=== PATIENT | male | born 1965 | race Caucasian/White ===

== ENCOUNTER 2021-12-17 15:43 | Emergency (ER) | payer MEDICARE, MEDICAID ==
[~2021-12-17] VITALS: Ht 190.5 cm; Wt 95.5 kg
[~2021-12-17 15:43] MED LIST: ASPI-611 PO; CHOL500050 PO; DEC1T PO
[2021-12-17 16:18] VITALS: BP 143/87
[2021-12-17] MEDS ORDERED: bacitracin 15gm ointment TP ONE (16:40)
== END 2021-12-17 17:38 | disposition home or self-care (01) ==
LOC: ER 15:43
DX: Z48.00 Encounter for change or removal of nonsurgical wound dressing (principal)
CPT/HCPCS: 99283

== ENCOUNTER 2022-03-16 14:08 | Inpatient (IN) | payer MEDICARE, MEDICAID ==
[~2022-03-16] VITALS: Ht 180.3 cm; Wt 98.0 kg
[~2022-03-16 14:08] MED LIST changes: -ASPI-611 PO; -DEC1T PO; +OMEG10006 PO; +etomidate 2mg/ml inj. ONE; +rocuronium 10mg/ml inj IV ONE; +sod chloride 0.9% 10ml flush syringe IV ONE
[2022-03-16] MEDS ORDERED: albuterol 2.5 MG/3 ML nebule CONTNEB PRN (14:15)
[2022-03-16] MEDS ORDERED: methylPREDNISolone sod succ 125mg/2ml vial IV ONE (14:15)
[2022-03-16] MEDS ORDERED: albuterol 2.5 MG/3 ML nebule ONE (14:16)
[2022-03-16 14:29] LABS: ABG BASE EXCESS -1.5 mmol/L (-2.0-2.0); ABG HCO3 26.9 mmol/L (22.0-26.0); ABG OXYGEN SATURATION 88.8 % (94-97); ABG PCO2 (T) 63.4 mmHg (35.0-48.0); ABG PO2 (T) 64.3 mmHg (75.0-100.0); FCOHb 1.1 % (0.0-3.9); FLOW 15 L/min; FMetHb 0.1 % (0.0-1.5); FO2Hb 87.7 % (94-97); PATIENT TEMPERATURE 37.1
[2022-03-16 14:38] LABS: BASOPHILS % (AUTO) 0.2 % (0-1); EOSINOPHILS % (AUTO) 0.1 % (0-6); HEMATOCRIT 37.3 % (42.0-52.0); HEMOGLOBIN 11.7 g/dl (14.0-17.9); MEAN CORPUSCULAR HEMOGLOBIN 26.1 PG (27.0-31.0); MEAN CORPUSCULAR HGB CONC 31.3 g/dL (33.0-36.5); MEAN CORPUSCULAR VOLUME 83.4 FL (78-98); MEAN PLATELET VOLUME 7.5 FL (7.4-10.4); MONOCYTES % (AUTO) 7.4 % (2-12); NEUTROPHILS % (AUTO) 85.3 % (42-75); PLATELET COUNT 552 X10'3 (140-440); RED BLOOD COUNT 4.47 X10'6 (4.70-6.10); RED CELL DISTRIBUTION WIDTH 15.1 % (11.5-14.5)
[2022-03-16 15:03] LABS: ALANINE AMINOTRANSFERASE 18 U/L (12-78); ALBUMIN 2.8 G/DL (3.4-5.0); ALBUMIN/GLOBULIN RATIO 0.4 (1.1-1.5); ALKALINE PHOSPHATASE 69 IU/L (46-116); ANION GAP 11 (8-16); ASPARTATE AMINO TRANSFERASE 27 U/L (10-37); BILIRUBIN,TOTAL 0.3 MG/DL (0.1-1.0); BLOOD UREA NITROGEN 29 MG/DL (7-18); BUN/CREATININE RATIO 19.6 (5.4-32.0); CALCIUM 9.9 MG/DL (8.5-10.1); CHLORIDE 96 MMOL/L (99-107); CREATININE 1.48 MG/DL (0.60-1.10); GLUCOSE 132 MG/DL (70-104); MAGNESIUM 2.1 MG/DL (1.5-2.4); SODIUM 134 MMOL/L (135-145); TOTAL CARBON DIOXIDE 27.3 MMOL/L (24-32); TOTAL PROTEIN 9.6 G/DL (6.4-8.2); eGFR 49 ML/MIN
[2022-03-16 15:09] LABS: POTASSIUM 4.6 MMOL/L (3.5-5.1)
[2022-03-16] MEDS ORDERED: piperacillin/tazo 3.375gm/50ml 50 ML IV ONE (15:45)
[2022-03-16] MEDS ORDERED: normal saline 1000ML IV soln IV ONE (15:45)
[2022-03-16 15:48] LABS: CLARITY,URINE CLOUDY (Clear); COLOR,URINE YELLOW (Yellow); GLUCOSE, URINE NEGATIVE (Neg); KETONES,URINE TRACE mg/dl (Neg); LEUKOCYTE ESTERASE ,URINE MODERATE (Neg); NITRITES, URINE NEGATIVE (Neg); OCCULT BLOOD,URINE MODERATE (Neg); PROTEIN,URINE 100 mg/dl (Neg); UROBILINOGEN,URINE 0.2 E.U/dL (0.2-1.0)
[2022-03-16 15:52] LABS: UA COLLECTION TYPE FOLEY CATH
[2022-03-16 15:56] LABS: WBC,URINE TNTC /HPF (0-4)
[2022-03-16 16:14] LABS: SQUAMOUS EPITHELIAL CELL,UR FEW /LPF (FEW)
[2022-03-16 16:15] LABS: BACTERIA,URINE 4+ /HPF (Neg)
[2022-03-16] MEDS ORDERED: ondansetron/PF 4mg/2ml inj IV PRN (16:15)
[2022-03-16] MEDS ORDERED: morphine 2 MG/ML inj. syringe IV PRN (16:15)
[2022-03-16] MEDS ORDERED: HYDROcodone/acetaminophen 5mg/325mg tablet PO PRN (16:15)
[2022-03-16] MEDS ORDERED: mag hydrox/Alum hydrox/simeth 30ml oral suspension PO PRN (16:15)
[2022-03-16] MEDS ORDERED: magnesium hydroxide 30ml (MOM) UD suspension PO PRN (16:15)
[2022-03-16] MEDS ORDERED: acetaminophen 325mg tablet PO PRN (16:15)
[2022-03-16] MEDS ORDERED: HYDROcodone/acetaminophen 10/325mg tab PO PRN (16:15)
[2022-03-16 16:35] LABS: ABG BASE EXCESS -2.4 mmol/L (-2.0-2.0); ABG HCO3 25.5 mmol/L (22.0-26.0); ABG OXYGEN SATURATION 97.8 % (94-97); ABG PCO2 (T) 58.2 mmHg (35.0-48.0); ABG PO2 (T) 112.7 mmHg (75.0-100.0); ALLEN'S TEST POSITIVE; FCOHb 0.5 % (0.0-3.9); FMetHb 0.2 % (0.0-1.5); FO2Hb 97.1 % (94-97); RESPIRATORY RATE 12 b/min; TIDAL VOLUME 459 mL
[2022-03-16 16:56] LABS: D-DIMER 6.48 MG/L FEU (0-0.50)
[2022-03-16] MEDS ORDERED: azithromycin/NS 500mg/250ml 250 ML IV ONE (17:20)
[2022-03-16] MEDS ORDERED: enoxaparin 80mg/0.8ml syringe SUBCUT ONE (17:30)
[2022-03-16] MEDS: docusate sod 100mg capsule PO SCH (19:58)
[2022-03-16 21:36] LABS: ABG BASE EXCESS -3.3 mmol/L (-2.0-2.0); ABG HCO3 23.5 mmol/L (22.0-26.0); ABG OXYGEN SATURATION 86.5 % (94-97); ABG PCO2 (T) 50.3 mmHg (35.0-48.0); ABG PO2 (T) 54.6 mmHg (75.0-100.0); FCOHb 0.6 % (0.0-3.9); PATIENT TEMPERATURE 37.3
[2022-03-16 22:03] VITALS: BP 91/61
[2022-03-17 02:00] VITALS: BP 108/70
[2022-03-17] MEDS: enoxaparin 40mg/0.4ml syringe SUBCUT SCH (07:46)
[2022-03-17] MEDS: CefTRIAXone/D5W-Rocephin 1gm 50 ML IV SCH (07:47)
[2022-03-17] MEDS: docusate sod 100mg capsule PO SCH ×2 (08:00→20:00)
[2022-03-17 08:31] LABS: BASOPHILS % (AUTO) 0.1 % (0-1); EOSINOPHILS % (AUTO) 0 % (0-6); HEMATOCRIT 33.2 % (42.0-52.0); HEMOGLOBIN 10.6 g/dl (14.0-17.9); MEAN CORPUSCULAR HEMOGLOBIN 26.5 PG (27.0-31.0); MEAN CORPUSCULAR HGB CONC 31.9 g/dL (33.0-36.5); MEAN CORPUSCULAR VOLUME 83.1 FL (78-98); MEAN PLATELET VOLUME 7.3 FL (7.4-10.4); MONOCYTES % (AUTO) 4.9 % (2-12); NEUTROPHILS # (AUTO) 12.8 X10'3 (1.8-7.7); PLATELET COUNT 462 X10'3 (140-440); WHITE BLOOD COUNT 14.6 X10'3 (4.5-11.0)
[2022-03-17 08:32] LABS: MONOCYTES # (AUTO) 0.7 X10'3 (0-0.9)
--- NOTE | 2022-03-17 08:32 | NUR ---
Dr. Suarez wanted the patient to have 80mg of lovenox this morning total. He gave me an order for 40 mg lovenox SQ once now.
[2022-03-17 08:37] VITALS: BP 113/70
[2022-03-17 08:52] LABS: ALANINE AMINOTRANSFERASE 13 U/L (12-78); ALBUMIN 2.3 G/DL (3.4-5.0); ALBUMIN/GLOBULIN RATIO 0.4 (1.1-1.5); ALKALINE PHOSPHATASE 57 IU/L (46-116); ANION GAP 7 (8-16); ASPARTATE AMINO TRANSFERASE 20 U/L (10-37); BILIRUBIN,TOTAL 0.2 MG/DL (0.1-1.0); BLOOD UREA NITROGEN 28 MG/DL (7-18); BUN/CREATININE RATIO 25.7 (5.4-32.0); CALCIUM 9.3 MG/DL (8.5-10.1); CHLORIDE 103 MMOL/L (99-107); CREATININE 1.09 MG/DL (0.60-1.10); GLUCOSE 159 MG/DL (70-104); POTASSIUM 4.4 MMOL/L (3.5-5.1); SODIUM 137 MMOL/L (135-145); TOTAL CARBON DIOXIDE 27.3 MMOL/L (24-32); TOTAL PROTEIN 8.3 G/DL (6.4-8.2); eGFR 70 ML/MIN
[2022-03-17] MEDS ORDERED: enoxaparin 40mg/0.4ml syringe SUBCUT ONE (09:25)
--- NOTE | 2022-03-17 09:28 | NUR ---
Malnutrition consult: Pt endorses a good appetite and denies any significant wt loss. It seemed a little difficult for pt to articulate his words, though he seemed to be saying that he has occasional difficulties w/ swallowing. Recommend BSS to determine swallow safety. No edema noted. No visible signs of muscle or fat wasting observed. Pt does not meet minimum criteria for malnutrition. Pt has wound to coccyx per RN skin assessment, WOC pending. Addendum: 03/17/22 at [address] Amended: Links added.
--- NOTE | 2022-03-17 10:22 | NUR ---
Physical assessment - patient appears to have layers of dried skin scales all over facial area, and caked in lemus. layers of caked scaly skin behind both ears. Nails dirty and long. General lack of hygiene care noted. Hygiene care provided. Pressure sores to Left foot and bilateral buttocks noted - wound consult completed. Urine thick with green, yellow mucus. Ortiz care provided. social services specialist consult requested.
--- NOTE | 2022-03-17 10:46 | NUR ---
Page Sent promotional table spacer PAGER ID: [phone] MESSAGE: [id number] Maurizio Sanford. Blood culture positive @18.56 hours from the right arm drawn 03/16 from the aerobic bottle. Gram stain show gram positive cocci in clusters. Allyson @1545 (173 character message out of a maximum of 240)
[2022-03-17 11:00] VITALS: BP 124/88
[2022-03-17 15:00] VITALS: BP 128/87
[2022-03-17] MEDS ORDERED: ACET-812 PO (16:35)
[2022-03-17] MEDS ORDERED: BISA-155 PO (16:35)
[2022-03-17] MEDS ORDERED: GUAI-1078 PO (16:35)
[2022-03-17] MEDS ORDERED: OMEG1CAP61 PO (16:35)
[2022-03-17] MEDS ORDERED: IBUP-1984 PO (16:35)
[2022-03-17] MEDS ORDERED: CALC500T11 PO (16:35)
[2022-03-17] MEDS ORDERED: CHOL200012 PO (16:35)
--- NOTE | 2022-03-17 17:48 | NUR ---
orientee documentation: I have reviewed and agree with all interventions, assessments performed and documented by Irma THIBODEAUX . Orientee Medication Administration: For this medication-pass time frame, all medication were reviewed, dispensed, administered and documented per hospital policy by Irma HTIBODEAUX .
[2022-03-17 18:00] VITALS: BP 96/51
--- NOTE | 2022-03-17 18:05 | NUR ---
Problems reprioritized. Patient report given, questions answered & plan of care reviewed with Rik HARDING. Patient resting in bed in n acute distress.
[2022-03-18 02:00] VITALS: BP 85/48
--- NOTE | 2022-03-18 06:50 | NUR ---
Patient in room PCU 3013B. I have received report from Rik HARDING and had the opportunity to ask questions and assume patient care. Pt is laying high fowlers in bed. Pt on 6L NC. No s/s of distress, or c/o pain at this time. BLL, call light within reach, frequently used items inreach, frequent rounding, instant powder supervisor socks on. Will continue to monitor.
[2022-03-18 07:02] LABS: BASOPHILS % (AUTO) 0.1 % (0-1); EOSINOPHILS % (AUTO) 0.2 % (0-6); HEMATOCRIT 29.9 % (42.0-52.0); HEMOGLOBIN 9.4 g/dl (14.0-17.9); LYMPHOCYTES # (AUTO) 1.4 X10'3 (1.1-4.8); LYMPHOCYTES % (AUTO) 11.2 % (21-51); MEAN CORPUSCULAR HEMOGLOBIN 26.1 PG (27.0-31.0); MEAN CORPUSCULAR HGB CONC 31.6 g/dL (33.0-36.5); MEAN CORPUSCULAR VOLUME 82.8 FL (78-98); MEAN PLATELET VOLUME 7.2 FL (7.4-10.4); MONOCYTES # (AUTO) 1.2 X10'3 (0-0.9); MONOCYTES % (AUTO) 9.2 % (2-12); NEUTROPHILS # (AUTO) 10.2 X10'3 (1.8-7.7); NEUTROPHILS % (AUTO) 79.3 % (42-75); PLATELET COUNT 430 X10'3 (140-440); RED BLOOD COUNT 3.61 X10'6 (4.70-6.10); RED CELL DISTRIBUTION WIDTH 14.7 % (11.5-14.5); WHITE BLOOD COUNT 12.9 X10'3 (4.5-11.0)
[2022-03-18] MEDS: docusate sod 100mg capsule PO SCH ×2 (09:00→19:43)
[2022-03-18] MEDS: CefTRIAXone/D5W-Rocephin 1gm 50 ML IV SCH (09:00)
[2022-03-18] MEDS: enoxaparin 40mg/0.4ml syringe SUBCUT SCH (09:01)
[2022-03-18 09:05] LABS: ALANINE AMINOTRANSFERASE 22 U/L (12-78); ALBUMIN 2.2 G/DL (3.4-5.0); ALBUMIN/GLOBULIN RATIO 0.4 (1.1-1.5); ALKALINE PHOSPHATASE 52 IU/L (46-116); ANION GAP 7 (8-16); ASPARTATE AMINO TRANSFERASE 28 U/L (10-37); BILIRUBIN,TOTAL 0.1 MG/DL (0.1-1.0); BLOOD UREA NITROGEN 31 MG/DL (7-18); BUN/CREATININE RATIO 30.4 (5.4-32.0); CALCIUM 9.5 MG/DL (8.5-10.1); CHLORIDE 104 MMOL/L (99-107); CREATININE 1.02 MG/DL (0.60-1.10); GLUCOSE 106 MG/DL (70-104); POTASSIUM 3.7 MMOL/L (3.5-5.1); SODIUM 141 MMOL/L (135-145); TOTAL CARBON DIOXIDE 29.7 MMOL/L (24-32); TOTAL PROTEIN 7.5 G/DL (6.4-8.2); eGFR 76 ML/MIN
[2022-03-18] MEDS ORDERED: vancomycin/NS 1 GM ADD-VANTAGE 250 ML IV SCH (10:05)
[2022-03-18] MEDS ORDERED: iohexol 350MG/ML 100ml bottle IV ONE (11:34)
[2022-03-18 18:00] VITALS: BP 114/67
[2022-03-18] MEDS: docusate sodium 100mg/10ml UD cup PO SCH (19:55)
[2022-03-18 22:24] VITALS: BP 108/61
[2022-03-19 02:42] VITALS: BP 96/58
[2022-03-19 07:00] VITALS: BP 90/48
[2022-03-19 07:15] LABS: BASOPHILS % (AUTO) 0.1 % (0-1); EOSINOPHILS % (AUTO) 0.2 % (0-6); HEMATOCRIT 30.6 % (42.0-52.0); HEMOGLOBIN 9.8 g/dl (14.0-17.9); LYMPHOCYTES # (AUTO) 1.8 X10'3 (1.1-4.8); LYMPHOCYTES % (AUTO) 10.4 % (21-51); MEAN CORPUSCULAR HEMOGLOBIN 26.5 PG (27.0-31.0); MEAN CORPUSCULAR HGB CONC 32.1 g/dL (33.0-36.5); MEAN CORPUSCULAR VOLUME 82.5 FL (78-98); MEAN PLATELET VOLUME 7.7 FL (7.4-10.4); MONOCYTES % (AUTO) 5.6 % (2-12); NEUTROPHILS # (AUTO) 14.7 X10'3 (1.8-7.7); NEUTROPHILS % (AUTO) 83.7 % (42-75); PLATELET COUNT 480 X10'3 (140-440); RED BLOOD COUNT 3.71 X10'6 (4.70-6.10); RED CELL DISTRIBUTION WIDTH 14.8 % (11.5-14.5); WHITE BLOOD COUNT 17.5 X10'3 (4.5-11.0)
[2022-03-19] MEDS: CefTRIAXone/D5W-Rocephin 1gm 50 ML IV SCH (07:31)
[2022-03-19] MEDS: enoxaparin 40mg/0.4ml syringe SUBCUT SCH (07:31)
[2022-03-19] MEDS: docusate sodium 100mg/10ml UD cup PO SCH ×2 (07:31→19:06)
[2022-03-19 07:38] LABS: ALANINE AMINOTRANSFERASE 25 U/L (12-78); ALBUMIN 1.9 G/DL (3.4-5.0); ALBUMIN/GLOBULIN RATIO 0.3 (1.1-1.5); ALKALINE PHOSPHATASE 57 IU/L (46-116); ANION GAP 6 (8-16); ASPARTATE AMINO TRANSFERASE 26 U/L (10-37); BILIRUBIN,TOTAL 0.2 MG/DL (0.1-1.0); BLOOD UREA NITROGEN 22 MG/DL (7-18); BUN/CREATININE RATIO 20.8 (5.4-32.0); CALCIUM 8.9 MG/DL (8.5-10.1); CHLORIDE 101 MMOL/L (99-107); CREATININE 1.06 MG/DL (0.60-1.10); GLUCOSE 111 MG/DL (70-104); POTASSIUM 3.7 MMOL/L (3.5-5.1); SODIUM 138 MMOL/L (135-145); TOTAL CARBON DIOXIDE 31.3 MMOL/L (24-32); TOTAL PROTEIN 7.4 G/DL (6.4-8.2); eGFR 73 ML/MIN
[2022-03-19 13:00] VITALS: BP 130/55
[2022-03-19 18:00] VITALS: BP 111/58
[2022-03-19] MEDS: morphine 2 MG/ML inj. syringe IV PRN (21:29)
[2022-03-19 23:34] VITALS: BP 103/64
[2022-03-20] VITALS (31 sets, daily range): BP systolic 91–148; BP diastolic 49–86
[2022-03-20] MEDS: morphine 2 MG/ML inj. syringe IV PRN ×2 (01:30→05:32)
[2022-03-20 06:38] LABS: ABG BASE EXCESS 4.7 mmol/L (-2.0-2.0); ABG HCO3 32.6 mmol/L (22.0-26.0); ABG OXYGEN SATURATION 87.7 % (94-97); ABG PCO2 (T) 65.3 mmHg (35.0-48.0); ABG PO2 (T) 52.6 mmHg (75.0-100.0); ALLEN'S TEST POSITIVE; FCOHb 0.1 % (0.0-3.9); FMetHb 0.2 % (0.0-1.5); FO2Hb 87.4 % (94-97); RESPIRATORY RATE 16 b/min; TIDAL VOLUME 549 mL; TOTAL HEMOGLOBIN 12.1 G/dl (14.0-17.9)
--- NOTE | 2022-03-20 06:47 | NUR ---
STAT CHEST XRAY POST-INTUBATION ROOM 3017Q PT NINA DESAI
--- NOTE | 2022-03-20 07:00 | NUR ---
RN called patient's sister (Gabriela Sanford) and notified that patient's respiratory status was worsening and MD Luther would like to intubate. The patient's sister agreed with this action and stated she was on her way to the hospital to see her brother.
--- NOTE | 2022-03-20 07:02 | NUR ---
0540 MD Luther was notified by telephone that patient had increased respirations in the 25-20 range and oxygen saturation at 84%. MD Luther ordered a stat chest x-ray. RN paged RT and RT assessed. 0550 MD Luther notified by telephone that patient had increased respirations in the 30-35 range. MD Luther ordered an ABG. RT was paged about ABG order. 0600 MD Luther was at bedside and ordered that patient be intubated and transferred to CICU. CICU specialist physician, two RT's, and ED MD intubated the patient at bedside. Patient was transferred to the CICU by RT and CICU specialist physician. Report called to CICU nurse that was going to get the patient.
[2022-03-20] MEDS: docusate sodium 100mg/10ml UD cup PO SCH ×2 (08:00→18:44)
[2022-03-20] MEDS: enoxaparin 40mg/0.4ml syringe SUBCUT SCH (08:00)
[2022-03-20] MEDS: CefTRIAXone/D5W-Rocephin 1gm 50 ML IV SCH (08:00)
[2022-03-20 08:09] LABS: ABG BASE EXCESS 6.9 mmol/L (-2.0-2.0); ABG HCO3 32.4 mmol/L (22.0-26.0); ABG PCO2 (T) 49.9 mmHg (35.0-48.0); ABG PO2 (T) 48.7 mmHg (75.0-100.0); ALLEN'S TEST POSITIVE; FCOHb 0.3 % (0.0-3.9); FMetHb 0.3 % (0.0-1.5); FO2Hb 88.5 % (94-97); PATIENT TEMPERATURE 36.9; PEEP 8 cm H2O; RESPIRATORY RATE 20 b/min; TIDAL VOLUME 500 mL
[2022-03-20] MEDS: NORMAL SALINE IV SCH (08:15)
[2022-03-20] MEDS: FENTANYL IV SCH (08:15)
[2022-03-20] MEDS: normal saline 1000ml 1,000 ML IV SCH ×2 (08:15→23:52)
--- NOTE | 2022-03-20 08:30 | NUR ---
Pt arrived to CICU on speciality bed, intubated and sedated as pt is unresponsive at this time. Report received from Dick HARDING on PCU. Positioned to comfort, turn/skin check completed & pictures taken. Rectal area excoriated, rectal tube placed. Chest xray shows white out on right lung & ETT to high. RT aware. Pt up on left side. Sats improved. MD to see & orders received.
[2022-03-20 08:50] LABS: BASOPHILS % (AUTO) 0.1 % (0-1); EOSINOPHILS % (AUTO) 0 % (0-6); HEMATOCRIT 33.5 % (42.0-52.0); HEMOGLOBIN 10.5 g/dl (14.0-17.9); LYMPHOCYTES # (AUTO) 0.5 X10'3 (1.1-4.8); LYMPHOCYTES % (AUTO) 1.7 % (21-51); MEAN CORPUSCULAR HEMOGLOBIN 26.1 PG (27.0-31.0); MEAN CORPUSCULAR HGB CONC 31.4 g/dL (33.0-36.5); MEAN CORPUSCULAR VOLUME 83.1 FL (78-98); MEAN PLATELET VOLUME 7.7 FL (7.4-10.4); MONOCYTES # (AUTO) 1.2 X10'3 (0-0.9); MONOCYTES % (AUTO) 3.7 % (2-12); NEUTROPHILS # (AUTO) 30.6 X10'3 (1.8-7.7); NEUTROPHILS % (AUTO) 94.5 % (42-75); PLATELET COUNT 469 X10'3 (140-440); RED BLOOD COUNT 4.03 X10'6 (4.70-6.10); RED CELL DISTRIBUTION WIDTH 15.5 % (11.5-14.5)
[2022-03-20 08:57] LABS: WHITE BLOOD COUNT 32.4 X10'3 (4.5-11.0)
[2022-03-20 09:16] LABS: ALANINE AMINOTRANSFERASE 26 U/L (12-78); ALBUMIN 2.1 G/DL (3.4-5.0); ALBUMIN/GLOBULIN RATIO 0.4 (1.1-1.5); ALKALINE PHOSPHATASE 81 IU/L (46-116); ANION GAP 7 (8-16); ASPARTATE AMINO TRANSFERASE 41 U/L (10-37); BILIRUBIN,TOTAL 0.5 MG/DL (0.1-1.0); BLOOD UREA NITROGEN 21 MG/DL (7-18); BUN/CREATININE RATIO 17.5 (5.4-32.0); CALCIUM 9.1 MG/DL (8.5-10.1); CHLORIDE 98 MMOL/L (99-107); GLUCOSE 176 MG/DL (70-104); POTASSIUM 3.9 MMOL/L (3.5-5.1); SODIUM 137 MMOL/L (135-145); TOTAL CARBON DIOXIDE 32.3 MMOL/L (24-32); TOTAL PROTEIN 7.9 G/DL (6.4-8.2); eGFR 63 ML/MIN
[2022-03-20 09:21] LABS: TOTAL CELLS COUNTED 100
[2022-03-20 09:22] LABS: ANISOCYTOSIS FEW; PLATELET ESTIMATE INCREASED; TOXIC GRANULATION 1+
[2022-03-20] MEDS: pantoprazole 40MG/NS 100ML BAG 100 ML IV SCH (11:35)
--- NOTE | 2022-03-20 12:57 | NUR ---
Family Sister to see pt. Discussed pts current code status w/CN and pt will remain DNR, remain intubated to see if treatments will be effective in treating the pneumonia. involved in discussion.
--- NOTE | 2022-03-20 13:25 | NUR ---
Initial: Pt admit for respiratory failure, possible PNA, GABI, and sepsis. Pt previously on BiPAP however respiratory status worsened and pt ultimately intubated. No nutrition intervention at this time as pt does not have an OGT placed. TF recommendations below for if expected prolonged intubation and to receive nutrition support. LBM 03/19, documented as small however per RN pt with diarrhea and roughly 6 BMs since 03/19 so pt now with a rectal tube in place. Routine bowel care being held. Will continue to follow closely. Recommendations: 1) IF TF, continuous Vital AF with 80 mL/hr goal rate 2) IF TF, additional 120 mL water flush Q4H; monitor serum Na 3) IF TF, prealbumin q Wednesday/, daily scaled weights 4) Bowel care PRN 5) Advance to pureed diet with NTL as medically indicated following extubation (per [facility] 03/17-03/19) Addendum: 03/20/22 at [address] Amended: Links added.
[2022-03-20] MEDS ORDERED: ringers solution, lacted 1,000 ML IV ONE (17:00)
--- NOTE | 2022-03-20 18:20 | NUR ---
Problems reprioritized. Patient report given, questions answered & plan of care reviewed with Rupa RN. Bedside review completed with oncoming RN.
[2022-03-20] MEDS: acetaminophen 325mg tablet PO PRN (23:53)
[2022-03-21] VITALS (34 sets, daily range): BP systolic 83–173; BP diastolic 49–94
[2022-03-21] MEDS ORDERED: NORepinephrine 8mg/ 250ml NS 250 ML IV ONE (00:20)
[2022-03-21] MEDS: NORepinephrine 8mg/ 250ml NS 250 ML IV SCH ×2 (00:27→09:14)
--- NOTE | 2022-03-21 00:27 | NUR ---
Called Dr. Kimble to inform him of pt's decreased bp (72/41). Order to start levo at this time. RN made MD aware of no central line and levo will be running through PIV
[2022-03-21 04:02] LABS: ABG BASE EXCESS 4.2 mmol/L (-2.0-2.0); ABG HCO3 28.3 mmol/L (22.0-26.0); ABG OXYGEN SATURATION 98.4 % (94-97); ABG PCO2 (T) 40.3 mmHg (35.0-48.0); ABG PO2 (T) 108.5 mmHg (75.0-100.0); ALLEN'S TEST Yes; FCOHb 0.3 % (0.0-3.9); FMetHb 0.2 % (0.0-1.5); FO2Hb 97.9 % (94-97); PEEP 8 cm H2O; RESPIRATORY RATE 20 b/min; TIDAL VOLUME 500 mL; TOTAL HEMOGLOBIN 11.5 G/dl (14.0-17.9)
[2022-03-21 06:45] LABS: BASOPHILS # (AUTO) 0.1 X10'3 (0-0.2); BASOPHILS % (AUTO) 0.2 % (0-1); EOSINOPHILS # (AUTO) 0.1 X10'3 (0-0.9); EOSINOPHILS % (AUTO) 0.2 % (0-6); HEMATOCRIT 34.5 % (42.0-52.0); HEMOGLOBIN 10.8 g/dl (14.0-17.9); LYMPHOCYTES # (AUTO) 1.4 X10'3 (1.1-4.8); LYMPHOCYTES % (AUTO) 4.4 % (21-51); MEAN CORPUSCULAR HEMOGLOBIN 26.1 PG (27.0-31.0); MEAN CORPUSCULAR HGB CONC 31.4 g/dL (33.0-36.5); MEAN PLATELET VOLUME 8.2 FL (7.4-10.4); MONOCYTES # (AUTO) 1.7 X10'3 (0-0.9); MONOCYTES % (AUTO) 5.5 % (2-12); NEUTROPHILS % (AUTO) 89.7 % (42-75); PLATELET COUNT 481 X10'3 (140-440); RED BLOOD COUNT 4.15 X10'6 (4.70-6.10); RED CELL DISTRIBUTION WIDTH 15.6 % (11.5-14.5)
[2022-03-21 06:49] LABS: ALANINE AMINOTRANSFERASE 20 U/L (12-78); ALBUMIN 1.9 G/DL (3.4-5.0); ALBUMIN/GLOBULIN RATIO 0.3 (1.1-1.5); ALKALINE PHOSPHATASE 99 IU/L (46-116); ANION GAP 7 (8-16); ASPARTATE AMINO TRANSFERASE 22 U/L (10-37); BILIRUBIN,TOTAL 0.4 MG/DL (0.1-1.0); BLOOD UREA NITROGEN 21 MG/DL (7-18); BUN/CREATININE RATIO 19.1 (5.4-32.0); CHLORIDE 101 MMOL/L (99-107); GLUCOSE 118 MG/DL (70-104); POTASSIUM 3.7 MMOL/L (3.5-5.1); SODIUM 138 MMOL/L (135-145); TOTAL CARBON DIOXIDE 29.7 MMOL/L (24-32); TOTAL PROTEIN 7.4 G/DL (6.4-8.2); eGFR 69 ML/MIN
[2022-03-21 07:01] LABS: WHITE BLOOD COUNT 31.2 X10'3 (4.5-11.0)
[2022-03-21] MEDS: docusate sodium 100mg/10ml UD cup PO SCH ×2 (07:21→18:46)
[2022-03-21] MEDS: enoxaparin 40mg/0.4ml syringe SUBCUT SCH (07:31)
[2022-03-21] MEDS: CefTRIAXone/D5W-Rocephin 1gm 50 ML IV SCH (07:31)
[2022-03-21] MEDS: pantoprazole 40MG/NS 100ML BAG 100 ML IV SCH (07:31)
[2022-03-21 07:55] LABS: ANISOCYTOSIS 1+; MICROCYTOSIS 1+; PLATELET ESTIMATE INCREASED; TOTAL CELLS COUNTED 100
[2022-03-21] MEDS: NORMAL SALINE IV SCH (09:13)
[2022-03-21] MEDS: FENTANYL IV SCH (09:13)
[2022-03-21] MEDS: normal saline 1000ml 1,000 ML IV SCH ×3 (09:14→18:46)
[2022-03-21] MEDS ORDERED: normal saline 1000ml 1,000 ML IV ONE (09:55)
[2022-03-21] MEDS ORDERED: piperacillin/tazo 3.375gm/50ml 50 ML IV SCH (11:30)
[2022-03-21] MEDS: azithromycin/NS 500mg/250ml 250 ML IV SCH (11:30)
[2022-03-21] MEDS: acetaminophen 325mg tablet PO PRN (18:45)
[2022-03-21] MEDS: piperacillin/tazo 3.375gm/50ml 50 ML IV SCH (21:00)
[2022-03-22] VITALS (28 sets, daily range): BP systolic 71–157; BP diastolic 37–94
[2022-03-22 03:43] LABS: ABG BASE EXCESS 1.5 mmol/L (-2.0-2.0); ABG HCO3 25.9 mmol/L (22.0-26.0); ABG OXYGEN SATURATION 95.6 % (94-97); ABG PCO2 (T) 41.6 mmHg (35.0-48.0); ABG PO2 (T) 80.5 mmHg (75.0-100.0); ALLEN'S TEST POSITIVE; FCOHb 0.3 % (0.0-3.9); FMetHb 0.2 % (0.0-1.5); FO2Hb 95.1 % (94-97); PATIENT TEMPERATURE 37.8; PEEP 8 cm H2O; RESPIRATORY RATE 20 b/min; TIDAL VOLUME 500 mL; TOTAL HEMOGLOBIN 11.4 G/dl (14.0-17.9)
[2022-03-22] MEDS: piperacillin/tazo 3.375gm/50ml 50 ML IV SCH ×2 (05:10→15:49)
--- NOTE | 2022-03-22 06:00 | NUR ---
Patient in room CICU 2006. I have received report from Rupa HARDING and had the opportunity to ask questions and assume patient care.
[2022-03-22] MEDS: normal saline 1000ml 1,000 ML IV SCH ×3 (06:36→12:40)
[2022-03-22] MEDS: docusate sodium 100mg/10ml UD cup PO SCH (07:08)
[2022-03-22 07:36] LABS: BASOPHILS % (AUTO) 0 % (0-1); EOSINOPHILS # (AUTO) 0.2 X10'3 (0-0.9); EOSINOPHILS % (AUTO) 0.5 % (0-6); HEMATOCRIT 32.4 % (42.0-52.0); HEMOGLOBIN 10.1 g/dl (14.0-17.9); LYMPHOCYTES # (AUTO) 1.3 X10'3 (1.1-4.8); LYMPHOCYTES % (AUTO) 4.7 % (21-51); MEAN CORPUSCULAR HEMOGLOBIN 25.6 PG (27.0-31.0); MEAN CORPUSCULAR HGB CONC 31.2 g/dL (33.0-36.5); MEAN CORPUSCULAR VOLUME 81.9 FL (78-98); MEAN PLATELET VOLUME 7.8 FL (7.4-10.4); MONOCYTES # (AUTO) 1.4 X10'3 (0-0.9); MONOCYTES % (AUTO) 4.8 % (2-12); NEUTROPHILS # (AUTO) 25.4 X10'3 (1.8-7.7); PLATELET COUNT 474 X10'3 (140-440); RED BLOOD COUNT 3.95 X10'6 (4.70-6.10); RED CELL DISTRIBUTION WIDTH 15.7 % (11.5-14.5)
[2022-03-22 07:38] LABS: WHITE BLOOD COUNT 28.2 X10'3 (4.5-11.0)
[2022-03-22 07:42] LABS: ANION GAP 4 (8-16); BILIRUBIN,TOTAL 0.4 MG/DL (0.1-1.0); BLOOD UREA NITROGEN 20 MG/DL (7-18); BUN/CREATININE RATIO 17.5 (5.4-32.0); CALCIUM 8.4 MG/DL (8.5-10.1); CHLORIDE 104 MMOL/L (99-107); CREATININE 1.14 MG/DL (0.60-1.10); GLUCOSE 101 MG/DL (70-104); POTASSIUM 3.4 MMOL/L (3.5-5.1); SODIUM 139 MMOL/L (135-145); TOTAL CARBON DIOXIDE 30.6 MMOL/L (24-32); TOTAL PROTEIN 7.1 G/DL (6.4-8.2); eGFR 67 ML/MIN
[2022-03-22 07:43] LABS: ALANINE AMINOTRANSFERASE 19 U/L (12-78); ALBUMIN 1.7 G/DL (3.4-5.0); ALBUMIN/GLOBULIN RATIO 0.3 (1.1-1.5); ALKALINE PHOSPHATASE 80 IU/L (46-116); ASPARTATE AMINO TRANSFERASE 21 U/L (10-37)
[2022-03-22] MEDS: NORepinephrine 8mg/ 250ml NS 250 ML IV SCH ×2 (07:56→15:14)
[2022-03-22 08:03] LABS: TOTAL CELLS COUNTED 100
[2022-03-22 08:04] LABS: ELLIPTOCYTES FEW; HYPOCHROMASIA 1+; PLATELET ESTIMATE INCREASED; POLYCHROMASIA FEW; STOMATOCYTES FEW
[2022-03-22 08:05] LABS: TEAR DROP CELLS FEW
[2022-03-22] MEDS: pantoprazole 40MG/NS 100ML BAG 100 ML IV SCH (08:18)
[2022-03-22] MEDS: enoxaparin 40mg/0.4ml syringe SUBCUT SCH (08:18)
[2022-03-22] MEDS: azithromycin/NS 500mg/250ml 250 ML IV SCH (08:18)
[2022-03-22] MEDS: potassium CL 10mEq/100ml bag 100 ML IV PRN ×4 (10:23→13:55)
--- NOTE | 2022-03-22 12:30 | NUR ---
Dr. Monique at bedside. Patient is alert and oriented x4. Dr. Monique discussed code status with patient and nurse at bedside. Patient is stating he does not want to be reintubated and wants to stay a DNR. Addendum: 03/22/22 at 1626 by Erma Mcfadden RN Above was discussed with sister Red at bedside with Dr. Monique and RN present.
[2022-03-22] MEDS ORDERED: linezolid 600mg/300ml PREMIX 300 ML IV SCH (12:35)
[2022-03-22] MEDS ORDERED: normal saline 1000ml 1,000 ML IV ONE (13:25)
--- NOTE | 2022-03-22 14:45 | NUR ---
Patient desatting to 78% on 6L NC. Lungs auscultated rhonchi. BP 77/50. Informed Dr. Monique that bolus was not finished due to pt desatting and rhonchi, only 75% of bolus given. MD aware. No new orders at this time. Respiratory paged and giving breathing treatment and epap.
--- NOTE | 2022-03-22 15:15 | NUR ---
Pt desatting, RT at bedside, NT suctioning ordered. Dr. Monique aware of pt unable to clear airway, very weak cough, weak gag reflex.
--- NOTE | 2022-03-22 16:20 | NUR ---
Dr. Monique at bedside, MD aware of pt declining. Levophed started, NT suctioning attempted, placed pt on 15L high flow salter oxygen. Tried to call sister Red multiple times, no answer, left message. Dr. Monique spoke with mother Janie over the phone and discussed patients prognosis. Awaiting call back from sister. Addendum: 03/22/22 at 1742 by Erma Mcfadden RN aware pt has only peripheral lines for levophed.
--- NOTE | 2022-03-22 17:42 | NUR ---
Spoke with sister Gabriela on the phone and updated regarding patients condition. Gabriela stated she did not want to talk with the doctor and to continue doing what we are doing.
--- NOTE | 2022-03-22 18:32 | NUR ---
Problems reprioritized. Patient report given, questions answered & plan of care reviewed with Sahra HARDING.
--- NOTE | 2022-03-22 18:35 | NUR ---
I have received report and assumed care of pt. Pt resting in bed rise , tachypneic respitory rate in the upper twenties lower 30's, pt is on a Levophed drip to keep map greater then 65. Spoke to Pts sister who wishes to make the pt comfortable she does not want to see him struggling to breath and wants to honor his wishes to be a DNR. Spoke to Emerson Ureña NP who also spoke to the sister, pt is now palliative / comfort care. Goal to keep respitory rate equile to or less then 20.
[2022-03-22] MEDS ORDERED: LORazepam 2 mg/ml vial IV PRN (19:45)
[2022-03-22] MEDS: morphine 4 MG/ML inj SYRINge IV PRN ×2 (20:10→21:00)
--- NOTE | 2022-03-22 22:44 | NUR ---
RN IS TO DOCUMENT YES TO ALL APPLICABLE AREAS Pronouncement of : 1. Time Physician Notified:[id number] 2. Date of :03/22/2022 3. Time of : 2215 4. DNR/Withdraw life support documented:DNR 5. Monitor strip has been placed on chart:yes 6. Assessment process is of one-minute duration and includes following criteria: a) Patient is unresponsive to all stimuli: yes b) Pupils fixed and non-reactive:yes c) Auscultation of precordium reveals absence of heart tones:yes d) Auscultation of lungs reveals absence of breath sounds:yes e) Absence of blood pressure / all vital signs:yes f) QRS complexes are not present on monitor / EKG strip:yes g) Pacer spikes without capture:na 4. Comments:donor network reference number [id number]
--- NOTE | 2022-03-22 22:56 | NUR ---
family notified of pts passing, Юлия Garner contacted for pickup
--- NOTE | 2022-04-16 14:08 | NUR ---
Case Management DC follow up: Patient .
== END 2022-03-22 22:16 | DRG 871 ==
LOC: ER 14:09 → ED HOLD 16:23 → PCU 3S 22:00 → CICU 2S 03-20 07:00
PROVIDERS: ADMIT Internal Medicine; ATTEND Internal Medicine
PROC: 5A09357 Assistance with Respiratory Ventilation, Less than 24 Consecutive Hours, Continuous Positive Airway Pressure (ICD-10-PCS; 2022-03-16)
PROC: 5A09357 Assistance with Respiratory Ventilation, Less than 24 Consecutive Hours, Continuous Positive Airway Pressure (ICD-10-PCS; 2022-03-19)
PROC: 5A1945Z Respiratory Ventilation, 24-96 Consecutive Hours (ICD-10-PCS; principal; 2022-03-20)
PROC: 0BH17EZ Insertion of Endotracheal Airway into Trachea, Via Natural or Artificial Opening (ICD-10-PCS; 2022-03-20)
PROC: 5A0935A Assistance with Respiratory Ventilation, Less than 24 Consecutive Hours, High Flow/Velocity Cannula (ICD-10-PCS; 2022-03-22)
DX: A41.9 Sepsis, unspecified organism (principal); J18.9 Pneumonia, unspecified organism; J96.21 Acute and chronic respiratory failure with hypoxia; J96.22 Acute and chronic respiratory failure with hypercapnia; N17.0 Acute kidney failure with tubular necrosis; J98.11 Atelectasis; E44.0 Moderate protein-calorie malnutrition; Z51.5 Encounter for palliative care; Z66 Do not resuscitate; Z20.822 Contact with and (suspected) exposure to COVID-19; D64.9 Anemia, unspecified; G71.00 Muscular dystrophy, unspecified; R19.7 Diarrhea, unspecified; R26.9 Unspecified abnormalities of gait and mobility; N18.30 Chronic kidney disease, stage 3 unspecified; R65.20 Severe sepsis without septic shock; Z87.01 Personal history of pneumonia (recurrent); Z87.440 Personal history of urinary (tract) infections; Z74.01 Bed confinement status; Z86.16 Personal history of COVID-19; Y92.89 Other specified places as the place of occurrence of the external cause; Z68.30 Body mass index [BMI] 30.0-30.9, adult; N31.9 Neuromuscular dysfunction of bladder, unspecified
CPT/HCPCS: 36415; 36600; 71045; 71275; 80053; 81001; 82803; 82948; 83605; 83735; 83880; 84145; 84484; 85007; 85018; 85025; 85379; 87040; 87070; 87077; 87081; 87088; 87186; 87502; 87503; 87811; 92508; 92616; 93005; 93306; 93970; 94002; 94003; 94640; 94660; 94664; 94760; 94799; 96365; 96375; 99291; A4615; A4624; A4649; A6196; A6209; A6212; A6213; A6243; A6250; A6402; A6449; A7015; C9113; G0378; J0456; J0696; J1650; J2020; J2060; J2270; J2543; J2930; J3010; J3480; J3490; J7030; J7040; J7120; Q9967